=== PATIENT | male | born 1955 ===

== ENCOUNTER 2017-10-24 06:58 | Inpatient (IN) | payer BC ==
[2017-10-21 19:19] VITALS: BMI 27.3
[2017-10-24] MEDS ORDERED: ceFAZolin SODIUM 1 GM VIAL ONE (09:15)
[2017-10-24] MEDS ORDERED: ceFAZolin SODIUM 1 GM VIAL IVPB ONE ×2 (09:26→16:00)
[2017-10-24] MEDS ORDERED: KETAMINE HCL 200 MG/20 ML VIAL ONE (09:51)
[2017-10-24] MEDS ORDERED: PROPOFOL 20 ML ONE (10:14)
[2017-10-24] MEDS ORDERED: GELATIN, ABSORBABLE 100 EACH SPONGE TP ONE (10:15)
[2017-10-24] MEDS ORDERED: THROMBIN (BOVINE) 5,000 UNIT VIAL TP ONE (10:15)
[2017-10-24] MEDS ORDERED: ONDANSETRON 4 MG/2 ML VIAL ONE (11:06)
[2017-10-24] MEDS ORDERED: ONDANSETRON 4 MG/2 ML VIAL IVPUSH PRN ×2 (11:18→11:55)
[2017-10-24] MEDS ORDERED: LACTATED RINGERS SOLUTION 1,000 ML IV SCH (11:30)
--- NOTE | 2017-10-24 11:50 | PN ---
Progress Note (short form) - Note Progress Note: 62M s/p C5-C6 ACDF #0. -Pain control: oral only; no NSAID's. -DVT PPx: - Mechanical only: MEHDI's, SCD's. -Incentive spirometry q15min. -PT/OT/Rehab, OOB. -WBAT B/L LE. -q4h B/L UE & LE NV checks. -Post-op antibiotics x 2 doses. -Clear liquid diet; advance as tolerated. -f/u AM labs. -d/c Langley catheter at midnight. -Care per medical hospitalist team. -Discharge planning: f/u 7-10 days after discharge at [facility] office; call for appointment; . -Will follow. Victor Hugo Castelan MD (Orthopaedic Surgery).
[2017-10-24] MEDS ORDERED: diazePAM 5 MG TABLET PO PRN (11:51)
[2017-10-24] MEDS ORDERED: FUROSEMIDE 40 MG TABLET (FP) PO PRN (11:51)
--- NOTE | 2017-10-24 11:52 | OP ---
Operative Note - Note: Operative Date: 10/24/17 Pre-Operative Diagnosis: Cervical spinal stenosis Operation: C5-C6 ACDF Post-Operative Diagnosis: Same as Pre-op Surgeon: Victor Hugo Castelan Racker Octave Board: Sony Castelan Anesthesiologist/CITY ENGINEER: Stephanie Zimmerman Anesthesia: General Estimated Blood Loss (mls): 50 Fluid Volume Replaced (mls): 1,000 Operative Report Dictated: Yes
[2017-10-24] MEDS ORDERED: oxyCODONE HCL 5 MG TABLET PO PRN ×2 (11:55)
[2017-10-24] MEDS ORDERED: DEXAMETHASONE SOD PHOSPHATE 4 MG/1 ML VIAL ONE (13:02)
[2017-10-24] MEDS: oxyCODONE HCL 5 MG TABLET PO PRN ×2 (13:09→19:33)
[2017-10-24] MEDS: LACTATED RINGERS SOLUTION 1,000 ML IV SCH (13:35)
--- NOTE | 2017-10-24 13:59 | OP ---
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 OPERATION PERFORMED: 1. Anterior cervical diskectomy C5-C6. 2. Partial corpectomy C5, partial corpectomy 6. 3. Insertion of cage C5-C6. 4. Bone grafting. 5. Plating anterior arthrodesis C5-C6. ANESTHESIA: General. ANTIBIOTICS GIVEN: Preoperative 2 g Keflex, 1 g vancomycin and 1 g Kefzol given at the end of the procedure, 10 mg of Decadron given. Neural monitoring was utilized. DESCRIPTION OF PROCEDURE: The patient was correctly identified and brought to the operating room. Placed supine on the operating room table. Anesthesia provided. Baseline neural monitoring numbers read. Patient placed in the extended position. Repeat neural monitoring revealed no change. Skin cleansing was repeated with scrub solution, wiped off with alcohol, DuraPrep applied. Incision was made at the lines of Fer at the level of the cricothyroid interval. Dissection was taken through the platysma muscle. This was split longitudinally. The plane lateral to the strap muscles was entered. A Army-Barrera retractor with a lipped blade was placed under the esophagus retracting the visceral structures to the left, and a handheld was placed retracting the carotid sheath to the right. Using a unipolar Bovie, the longus coli was lifted off the bone bed of C5-C6 to expose the entire disk from left to right accordingly. Verification of the level with 1 single lateral shoot-through x- ray with a needle placed into the actual disk space. This was appropriately confirmed. The disk at C5-C6 was resected using curettes, pituitary rongeurs, and a 14-mm kristin-tip Midas Terence bur was utilized to open up the rectangle completely exposing the entire rectangular space. Approximately 2 Altha pins were placed, one in C5, one in C6. Slight gentle distraction achieved. Once the distraction had been achieved, the remaining bone of the partial corpectomy of C5 and C6 was then completed freeing the entire thecal. All of the posterior longitudinal ligament elements taken out. Then we were looking straight at the bulking dura with complete decompression. A size 8 Fortilink spacer with demineralized bone matrix button was placed within the confines of the spacer. Inserted the destructor device. It was removed. The cage was solidly seated. Verified on lateral fluoroscopic x-rays to be in excellent position. The plate was then inserted. This was a size 16-mm plate. Four screws utilized. These were 12-mm screws. Into each hold solid fixation achieved. Locking device applied. No complications. The wounds were thoroughly lavage. Hemostasis completed achieved. Superficial fascia 2-0 Vicryl skin, subcutaneous 2-0 Vicryl skin, 3-0 Monocryl with Steri-Strips. No complications. It must be noted that this operation was performed under a lighted microscope. MD ELIANA Santamaria/[id number] MTDD
[2017-10-24] MEDS ORDERED: ACETAMINOPHEN 325 MG TABLET (FP) PO SCH (14:15)
[2017-10-24] MEDS ORDERED: DEXAMETHASONE SOD PHOSPHATE 10 MG/1 ML VIAL IVPUSH ONE (14:15)
[2017-10-24] MEDS ORDERED: CEFAZOLIN 1 GM in DEXTROSE 5%-WATER - 50 ML IVPB SCH (16:00)
[2017-10-24] MEDS ORDERED: ACETAMINOPHEN 325 MG TABLET (FP) PO PRN (19:15)
--- NOTE | 2017-10-24 20:12 | CONSULT ---
Consultation: REQUESTING PROVIDER: CONSULT REQUEST: We have been asked to medically evaluate this patient for ( POD #0 C5-C6 ACDF). HISTORY OF PRESENT ILLNESS: Pt is a 62 y/o gentleman with a pmh of HTN, DM2, Takotsubo's cardiomyopathy, aortic stenosis, and hypercholesterolemia. Pt as outpatient underwent MR scanning of his cervical spine. Found to have disk prolapses at C3-C4, C5-C6 with impingement and narrowing of the canal in addition to diffuse fusiform stenosis in the midcervical region. Pt is POD # 0. Allergies: Fentanyl, hydrocodone, levofloxacin, methadone, morphine, tramadol, cefepime, clindamycin, fenofibrate, sulfamethoxazole, trimethoprim, sufentanyl. PShx- [id number], pt underwent numerous spinal surgeries, cannot recall exact surgeries. 2016-- underwent b/l hip replacement surgery. REVIEW OF SYSTEMS: CONSTITUTIONAL: PRESENT: generalized weakness, malaise, HEENT: Absent: rhinorrhea, nasal congestion, throat pain, throat swelling, difficulty swallowing, mouth swelling, ear pain, eye pain, visual changes CARDIOVASCULAR: Absent: chest pain, syncope, palpitations, irregular heart rate, lightheadedness , peripheral edema RESPIRATORY: PRESENT: shortness of breath GASTROINTESTINAL: Absent: abdominal pain, abdominal distension, nausea, vomiting, diarrhea, constipation, melena, hematochezia GENITOURINARY: Absent: dysuria, frequency, urgency, hesitancy, hematuria, flank pain, genital pain MUSCULOSKELETAL: Absent: myalgia, arthralgia, joint swelling, back pain, neck pain SKIN: Absent: rash, itching, pallor HEMATOLOGIC/IMMUNOLOGIC: Absent: easy bleeding, easy bruising, lymphadenopathy, frequent infections ENDOCRINE: Absent: unexplained weight gain, unexplained weight loss, heat intolerance, cold intolerance NEUROLOGIC: PRESENT: headache, focal weakness or paresthesias PSYCHIATRIC: PRESENT: anxiety PHYSICAL EXAMINATION Vital Signs - 24 hr 10/24/17 10/24/17 10/24/17 07:45 11:49 12:05 Temperature 98.0 F 98.2 F Pulse Rate 75 85 81 Respiratory 16 16 18 Rate Blood Pressure 103/66 135/86 131/71 O2 Sat by Pulse 99 97 100 Oximetry (%) 10/24/17 10/24/17 10/24/17 12:20 12:35 12:50 Temperature Pulse Rate 78 76 77 Respiratory 18 18 18 Rate Blood Pressure 139/75 138/77 149/76 O2 Sat by Pulse 100 100 100 Oximetry (%) 10/24/17 10/24/17 10/24/17 13:05 13:20 13:35 Temperature Pulse Rate 76 78 76 Respiratory 18 18 18 Rate Blood Pressure 117/73 147/82 140/75 O2 Sat by Pulse 100 100 100 Oximetry (%) 10/24/17 10/24/17 10/24/17 13:50 14:05 14:20 Temperature Pulse Rate 76 79 78 Respiratory 18 18 18 Rate Blood Pressure 143/75 146/82 154/80 O2 Sat by Pulse 100 100 100 Oximetry (%) 10/24/17 10/24/17 10/24/17 14:25 14:40 14:55 Temperature Pulse Rate 78 79 77 Respiratory 18 18 18 Rate Blood Pressure 151/83 152/79 146/82 O2 Sat by Pulse 100 100 100 Oximetry (%) 10/24/17 10/24/17 10/24/17 15:10 15:25 15:40 Temperature Pulse Rate 78 82 82 Respiratory 18 18 18 Rate Blood Pressure 142/80 139/81 139/81 O2 Sat by Pulse 100 100 99 Oximetry (%) 10/24/17 10/24/17 10/24/17 15:55 16:10 16:25 Temperature Pulse Rate 83 82 83 Respiratory 18 18 18 Rate Blood Pressure 149/82 145/77 143/80 O2 Sat by Pulse 100 100 100 Oximetry (%) 10/24/17 10/24/17 10/24/17 16:40 16:55 17:10 Temperature Pulse Rate 78 79 79 Respiratory 18 18 18 Rate Blood Pressure 141/81 147/83 146/82 O2 Sat by Pulse 100 100 100 Oximetry (%) 10/24/17 10/24/17 10/24/17 17:25 17:40 17:55 Temperature 97.8 F 97.8 F Pulse Rate 78 83 78 Respiratory 18 18 18 Rate Blood Pressure 146/78 132/72 147/72 O2 Sat by Pulse 100 100 100 Oximetry (%) 10/24/17 10/24/17 18:00 18:30 Temperature 98.3 F Pulse Rate 82 75 Respiratory 15 13 Rate Blood Pressure 151/86 144/77 O2 Sat by Pulse 100 Oximetry (%) GENERAL: Awake, NAD HEAD: NC/AT EYES: EOMI. EARS, NOSE, THROAT: MMM NECK: Bandage anterior neck site of surgery. LUNGS: Dec at bases. HEART: RRR ABDOMEN: NT, ND, No HSM MUSCULOSKELETAL: Strength 5/5 throughout UPPER EXTREMITIES: No CCE LOWER EXTREMITIES: No CCE NEUROLOGICAL: No Neuro Deficits PSYCHIATRIC: Cooperative. Good eye contact. Appropriate mood and affect. SKIN: No Rashes or Lesions observed Laboratory Results - last 24 hr 10/24/17 10/24/17 10/24/17 07:13 07:20 07:47 POC Glucometer 148 Blood Type O POSITIVE O POSITIVE Antibody Screen Negative Active Medications Generic Name Dose Route Start Last Admin Trade Name Freq PRN Reason Stop Dose Admin Acetaminophen 650 mg 10/24/17 19:15 Tylenol - PO Q6H PRN PAIN 1-6 Diazepam 10 mg 10/24/17 22:00 Valium - PO BID CUBA Diazepam 10 mg 10/24/17 11:51 Valium - PO BID PRN ANXIETY Enalapril Maleate 10 mg 10/25/17 10:00 Vasotec - PO DAILY [facility] Fluticasone Propionate 2 spray 10/25/17 10:00 Flonase - NS DAILY [facility] Furosemide 40 mg 10/24/17 11:51 Lasix - PO DAILY PRN EDEMA Gabapentin 300 mg 10/24/17 22:00 Neurontin - PO BID [facility] Lactated Ringer's 1,000 mls @ 100 mls/hr 10/24/17 12:00 10/24/17 13:35 Lactated Ringers Solution IV 0 mls ASDIR CUBA Administration Cefazolin Sodium 1 gm/ 50 mls @ 100 mls/hr 10/25/17 00:00 Dextrose IVPB 10/25/17 08:29 Q8H [facility] Levothyroxine Sodium 25 mcg 10/25/17 07:00 Synthroid - PO DAILY@0700 [facility] Metoprolol Succinate 50 mg 10/24/17 22:00 Toprol Xl - PO BID [facility] Non-Formulary Medication 25 mg 10/24/17 22:00 Naloxegol Oxalate [Movantik] PO BID [facility] Ondansetron HCl 4 mg 10/24/17 11:18 Zofran Injection IVPUSH Q6H PRN NAUSEA AND/OR VOMITING Ondansetron HCl 4 mg 10/24/17 11:55 Zofran Injection IVPUSH Q6H PRN NAUSEA AND/OR VOMITING Oxycodone HCl 5 mg 10/24/17 11:22 10/24/17 13:09 Roxicodone - PO 5 mg Q3H PRN Administration PAIN LEVEL 1-5 Oxycodone HCl 10 mg 10/24/17 11:22 10/24/17 19:33 Roxicodone - PO 10 mg Q3H PRN Administration PAIN LEVEL 6-10 Oxycodone HCl 10 mg 10/24/17 22:00 Oxycontin - PO 10/27/17 11:22 BID CUAB Oxycodone HCl 5 mg 10/24/17 11:55 Roxicodone - PO Q4H PRN PAIN LEVEL 4 - 6 Oxycodone HCl 10 mg 10/24/17 11:55 Roxicodone - PO Q4H PRN PAIN LEVEL 7 - 10 Pantoprazole Sodium 40 mg 10/24/17 22:00 Protonix - PO BID [facility] Polyethylene Glycol 17 gm 10/25/17 10:00 Miralax (For Daily Use) - PO DAILY [facility] Tamsulosin HCl 0.4 mg 10/24/17 22:00 Flomax - PO BID [facility] Zolpidem Tartrate 10 mg 10/24/17 22:00 Ambien - PO HS PRN INSOMNIA ASSESSMENT/PLAN: 62M s/p C5-C6 anterior Cervical Discectomy POD #6 Saw patient this evening with [facility]. Advised to give up to 20 mg Oxycodone if pt's pain persists. -Pain Management---> Oxycodone 5 mg po q3h PRN pain 1-5, 10 mg po Q3H PRN pain 6 -10, 10 mg po bid cuba, 5 mg po q4h prn pain 4-6, 10 mg po q4h prn pain 7-10. -PT/OT/Rehab, OOB. -WBAT B/L LE. -q4h B/L UE & LE NV checks. -Post-op antibiotics x 2 doses. -Clear liquid diet; advance as tolerated. -f/u AM labs. -d/c Langley catheter at midnight. -Care per medical hospitalist team. -Discharge planning: f/u 7-10 days after discharge at [facility] [place] office; call for appointment; . -Will follow. -Incentive spirometry q15min. FEN LR's 1,000 mls @ 100 mls/hr Monitor electrolytes Diabetic diet DVT PPx: MEHDI's Dispo: We will continue to follow the patient. Thank you for this consultative opportunity. Visit type - Emergency Visit Emergency Visit: No - New Patient This patient is new to me today: Yes Date on this admission: 10/24/17 - Critical Care Critical Care patient: Yes Total Critical Care Time (in minutes): 35 Critical Care Statement: The care of this patient involved high complexity decision making to prevent further life threatening deterioration of the patient 's condition and/or to evaluate & treat vital organ system(s) failure or risk of failure.
[2017-10-24] MEDS ORDERED: oxyCODONE HCL 5 MG TABLET PO ONE (21:11)
[2017-10-24] MEDS: diazePAM 5 MG TABLET PO SCH (21:24)
[2017-10-24] MEDS: oxyCODONE HCL 10 MG SUSTAINED ACTING TABLET PO SCH (21:24)
[2017-10-24] MEDS: PANTOPRAZOLE 40 MG TABLET (FP) PO SCH (21:25)
[2017-10-24] MEDS: GABAPENTIN 300 MG CAPSULE (FP) PO SCH (21:25)
[2017-10-24] MEDS: TAMSULOSIN HCL 0.4 MG CAP.ER.24H (FP) PO SCH (21:25)
--- NOTE | 2017-10-24 21:51 | PN ---
Physical Exam: SUBJECTIVE: Patient seen and examined in the ICU. POD 0 C5-C6 ACDF. Pt complaining of pain and neck stiffness. 11/14. Pt complaining of arm weakness though moving his arms well during interview. States he has not yet passed flatus and that his pain is not currently controlled. 50 cc blood loss 1L LR intraoperatively No reported complications OBJECTIVE: Vital Signs Period Temp Pulse Resp BP Sys/Ochoa Pulse Ox Last 24 Hr 97.8 F-98.3 F 74-85 13-20 103-154/66-86 97-100 GENERAL: A&O, no acute distress HEAD: Normocephalic, atraumatic. EYES: PERRL, EOMI, no scleral icterus EARS, NOSE, THROAT: oropharynx clear without exudates. Moist mucous membranes. NECK: supple without lymphadenopathy, decreased ROM, stiffness, clean dry dressing on anterior neck. LUNGS: CTA b/l, no crackles or wheezes HEART: Regular rate and rhythm, normal S1 and S2 without murmur, rub or gallop. ABDOMEN: Soft, nontender to palpation, hypoactive bowel sounds : Manley in place draining light yellow urine MUSCULOSKELETAL: No bony deformities or tenderness. No CVA tenderness. UPPER EXTREMITIES: 2+ pulses, warm, well-perfused. No cyanosis. No clubbing. No peripheral edema. LOWER EXTREMITIES: Decreased sensation b/l, peripheral neuropathy secondary to DM, says unchanged post-op 2+ pulses, warm, well-perfused. No calf tenderness. No peripheral edema. NEUROLOGICAL: Cranial nerves II-XII grossly intact. Normal speech. SKIN: Warm, dry, normal turgor, no rashes or lesions noted Laboratory Results - last 24 hr 10/24/17 10/24/17 10/24/17 07:13 07:20 07:47 POC Glucometer 148 Blood Type O POSITIVE O POSITIVE Antibody Screen Negative Active Medications Generic Name Dose Route Start Last Admin Trade Name Freq PRN Reason Stop Dose Admin Acetaminophen 650 mg 10/24/17 19:15 Tylenol - PO Q6H PRN PAIN 1-6 Diazepam 10 mg 10/24/17 22:00 10/24/17 21:24 Valium - PO 10 mg BID [facility] Administration Diazepam 10 mg 10/24/17 11:51 Valium - PO BID PRN ANXIETY Enalapril Maleate 10 mg 10/25/17 10:00 Vasotec - PO DAILY [facility] Fluticasone Propionate 2 spray 10/25/17 10:00 Flonase - NS DAILY [facility] Furosemide 40 mg 10/24/17 11:51 Lasix - PO DAILY PRN EDEMA Gabapentin 300 mg 10/24/17 22:00 10/24/17 21:25 Neurontin - PO 300 mg BID [facility] Administration Lactated Ringer's 1,000 mls @ 100 mls/hr 10/24/17 12:00 10/24/17 13:35 Lactated Ringers Solution IV 0 mls ASDIR [facility] Administration Cefazolin Sodium 1 gm/ 50 mls @ 100 mls/hr 10/25/17 00:00 Dextrose IVPB 10/25/17 08:29 Q8H [facility] Levothyroxine Sodium 25 mcg 10/25/17 07:00 Synthroid - PO DAILY@0700 [facility] Metoprolol Succinate 50 mg 10/24/17 22:00 10/24/17 21:24 Toprol Xl - PO 50 mg BID [facility] Administration Non-Formulary Medication 25 mg 10/24/17 22:00 Naloxegol Oxalate [Movantik] PO BID [facility] Ondansetron HCl 4 mg 10/24/17 11:18 Zofran Injection IVPUSH Q6H PRN NAUSEA AND/OR VOMITING Ondansetron HCl 4 mg 10/24/17 11:55 Zofran Injection IVPUSH Q6H PRN NAUSEA AND/OR VOMITING Oxycodone HCl 5 mg 10/24/17 11:22 10/24/17 13:09 Roxicodone - PO 5 mg Q3H PRN Administration PAIN LEVEL 1-5 Oxycodone HCl 10 mg 10/24/17 11:22 10/24/17 19:33 Roxicodone - PO 10 mg Q3H PRN Administration PAIN LEVEL 6-10 Oxycodone HCl 10 mg 10/24/17 22:00 10/24/17 21:24 Oxycontin - PO 10/27/17 11:22 10 mg BID [facility] Administration Oxycodone HCl 5 mg 10/24/17 11:55 Roxicodone - PO Q4H PRN PAIN LEVEL 4 - 6 Oxycodone HCl 10 mg 10/24/17 11:55 Roxicodone - PO Q4H PRN PAIN LEVEL 7 - 10 Oxycodone HCl 20 mg 10/25/17 04:00 Roxicodone - PO 10/25/17 04:01 ONCE ONE Pantoprazole Sodium 40 mg 10/24/17 22:00 10/24/17 21:25 Protonix - PO 40 mg BID [facility] Administration Polyethylene Glycol 17 gm 10/25/17 10:00 Miralax (For Daily Use) - PO DAILY [facility] Tamsulosin HCl 0.4 mg 10/24/17 22:00 10/24/17 21:25 Flomax - PO 0.4 mg BID [facility] Administration Zolpidem Tartrate 10 mg 10/24/17 22:00 Ambien - PO HS PRN INSOMNIA ASSESSMENT/PLAN: 62 yo male in the ICU s/p C5-C6 ACDF POD 0 Post-op Management -Pain control PO only Oxycodone 10 mg PO BID [facility] Oxycodone 10 mg PO Q4 PRN Oxycodone 20 mg PO once as per ortho Can receive another additional oxycodone 20 mg PO in 6 or 7 hours -Valium 10 mg PO BID for muscle spasms -D/c manley @ midnight -clear liquid diet advance as tolerated -Neuro checks Q4 -OOB as tolerated, PT eval -To med/surg or home tomorrow as per ortho Hypothyroidism -Synthroid 25 mcg PO Daily HTN/HLD -Enalapril 10 mg PO Daily -Toprol 50 mg PO BID DVT Prophylaxis -Mechanical only, SCDs -no heparin FEN -Fluids: LR @ 100 cc/hr -Electrolytes: BMP in AM -Nutrition: Clear liquids, advance as tolerated Disposition ICU overnight, can go to floors or home tomorrow as per ortho Visit type - Emergency Visit Emergency Visit: Yes Care time: The patient presented to the Emergency Department on the above date and was hospitalized for further evaluation of their emergent condition. - New Patient This patient is new to me today: Yes Date on this admission: 10/24/17 - Critical Care Critical Care patient: Yes Total Critical Care Time (in minutes): 35 Critical Care Statement: The care of this patient involved high complexity decision making to prevent further life threatening deterioration of the patient 's condition and/or to evaluate & treat vital organ system(s) failure or risk of failure.
[2017-10-24] MEDS ORDERED: ZOLPIDEM TARTRATE 5 MG TABLET PO PRN (22:00)
[2017-10-24] MEDS ORDERED: PATIENT'S OWN MEDICATION (NON-FORMULARY) (Naloxegol Oxalate [Movantik] 25 MG) PO SCH ×2 (22:00)
--- NOTE | 2017-10-24 22:08 | PN ---
Teaching Attending Note Name of Resident: Matt Rios ATTENDING PHYSICIAN STATEMENT I saw and evaluated the patient. I reviewed the resident's note and discussed the case with the resident. I agree with the resident's findings and plan as documented. SUBJECTIVE: Patient is s/p C5-C6 anterior cervical discectomy and fusion today. He complains of neck pain. OBJECTIVE: Vital Signs Period Temp Pulse Resp BP Sys/Ochoa Pulse Ox Last 24 Hr 97.3 F-98.3 F 72-85 13-20 103-154/66-94 97-100 HEART: S1S2, RRR LUNGS: Clear ABDOMEN: Soft, non-tender, non-distended, normal BS EXTREMITIES: No edema Laboratory Results - last 24 hr 10/24/17 10/24/17 10/24/17 07:13 07:20 07:47 POC Glucometer 148 Blood Type O POSITIVE O POSITIVE Antibody Screen Negative Current Medications Generic Name Dose Route Start Last Admin Trade Name Freq PRN Reason Stop Dose Admin Acetaminophen 650 mg 10/24/17 19:15 Tylenol - PO Q6H PRN PAIN 1-6 Diazepam 10 mg 10/24/17 22:00 10/24/17 21:24 Valium - PO 10 mg BID CHELSEY Administration Diazepam 10 mg 10/24/17 11:51 Valium - PO BID PRN ANXIETY Enalapril Maleate 10 mg 10/25/17 10:00 Vasotec - PO DAILY [facility] Fluticasone Propionate 2 spray 10/25/17 10:00 Flonase - NS DAILY [facility] Furosemide 40 mg 10/24/17 11:51 Lasix - PO DAILY PRN EDEMA Gabapentin 300 mg 10/24/17 22:00 10/24/17 21:25 Neurontin - PO 300 mg BID [facility] Administration Lactated Ringer's 1,000 mls @ 100 mls/hr 10/24/17 12:00 10/24/17 13:35 Lactated Ringers Solution IV 0 mls ASDIR [facility] Administration Cefazolin Sodium 1 gm/ 50 mls @ 100 mls/hr 10/25/17 00:00 Dextrose IVPB 10/25/17 08:29 Q8H [facility] Levothyroxine Sodium 25 mcg 10/25/17 07:00 Synthroid - PO DAILY@0700 [facility] Metoprolol Succinate 50 mg 10/24/17 22:00 10/24/17 21:24 Toprol Xl - PO 50 mg BID [facility] Administration Non-Formulary Medication 25 mg 10/24/17 22:00 Naloxegol Oxalate [Movantik] PO BID [facility] Ondansetron HCl 4 mg 10/24/17 11:18 Zofran Injection IVPUSH Q6H PRN NAUSEA AND/OR VOMITING Ondansetron HCl 4 mg 10/24/17 11:55 Zofran Injection IVPUSH Q6H PRN NAUSEA AND/OR VOMITING Oxycodone HCl 5 mg 10/24/17 11:22 10/24/17 13:09 Roxicodone - PO 5 mg Q3H PRN Administration PAIN LEVEL 1-5 Oxycodone HCl 10 mg 10/24/17 11:22 10/24/17 19:33 Roxicodone - PO 10 mg Q3H PRN Administration PAIN LEVEL 6-10 Oxycodone HCl 10 mg 10/24/17 22:00 10/24/17 21:24 Oxycontin - PO 10/27/17 11:22 10 mg BID [facility] Administration Oxycodone HCl 5 mg 10/24/17 11:55 Roxicodone - PO Q4H PRN PAIN LEVEL 4 - 6 Oxycodone HCl 10 mg 10/24/17 11:55 Roxicodone - PO Q4H PRN PAIN LEVEL 7 - 10 Oxycodone HCl 20 mg 10/25/17 04:00 Roxicodone - PO 10/25/17 04:01 ONCE ONE Pantoprazole Sodium 40 mg 10/24/17 22:00 10/24/17 21:25 Protonix - PO 40 mg BID [facility] Administration Polyethylene Glycol 17 gm 10/25/17 10:00 Miralax (For Daily Use) - PO DAILY [facility] Tamsulosin HCl 0.4 mg 10/24/17 22:00 10/24/17 21:25 Flomax - PO 0.4 mg BID [facility] Administration Zolpidem Tartrate 10 mg 10/24/17 22:00 Ambien - PO HS PRN INSOMNIA ASSESSMENT AND PLAN: This is a 62 year old man with a history of cervical stenosis, HTN, hyperlipidemia, hypothyroidism, type 2 DM, peripheral neuropathy who presented today for C5-C6 anterior cervical discectomy and fusion. 1. Cervical spinal stenosis - s/p C5-C6 anterior cervical discectomy and fusion today - Pain control - Continue Neurontin - Physical therapy 2. HTN - Continue Toprol XL, Vasotec, lasix 3. Hyperlipidemia - Continue Lipitor 4. Hypothyroidism - Continue Synthroid 5. Type 2 DM with peripheral neuropathy - Metformin, glyburide held - Fingersticks with Novolog sliding scale - Continue Neurontin for neuropathy
[2017-10-25] MEDS: ACETAMINOPHEN 325 MG TABLET (FP) PO SCH ×2 (03:12→03:13)
[2017-10-25] MEDS ORDERED: oxyCODONE HCL 5 MG TABLET PO ONE ×2 (04:00→14:45)
[2017-10-25 06:28] LABS: HEMOGLOBIN 12.3 GM/dL (11.7-16.9); MCH 28.2 pg (25.7-33.7); MCHC 33.2 g/dl (32.0-35.9); MEAN CELL VOLUME 84.8 fl (80-96); PLATELET COUNT 146 K/MM3 (134-434); RBC 4.36 M/mm3 (4.00-5.60); RDW 15.1 % (11.9-15.9); WHITE BLOOD COUNT 8.1 K/mm3 (4.0-10.0)
[2017-10-25 06:48] LABS: ANION GAP 7 (8-16); BLOOD UREA NITROGEN 18 mg/dL (7-18); CALCIUM 8.9 mg/dL (8.5-10.1); CHLORIDE 101 mmol/L (98-107); CO2 32 mmol/L (21-32); GLUCOSE,RANDOM 119 mg/dL (74-106); MAGNESIUM 1.8 mg/dL (1.8-2.4); POTASSIUM 4.3 mmol/L (3.5-5.1); SODIUM 140 mmol/L (136-145)
[2017-10-25] MEDS: oxyCODONE HCL 5 MG TABLET PO PRN ×4 (06:48→23:01)
[2017-10-25 06:51] LABS: ALK PHOS 111 U/L (45-117); BILIRUBIN,TOTAL 0.4 mg/dL (0.2-1.0); CREATININE 0.6 mg/dL (0.7-1.3); PHOSPHOROUS 3.7 mg/dL (2.5-4.9); SGOT/AST 46 U/L (15-37); SGPT/ALT 33 U/L (12-78); TOT PROT 7.2 g/dl (6.4-8.2)
[2017-10-25] MEDS ORDERED: LEVOTHYROXINE NA 25 MCG TABLET (FP) PO SCH (07:00)
[2017-10-25] MEDS ORDERED: ceFAZolin SODIUM 1 GM VIAL ONE (07:41)
[2017-10-25] MEDS ORDERED: DEXTROSE 5%-WATER - 50 ML IVPB ONE (07:41)
[2017-10-25] MEDS: CEFAZOLIN 1 GM in DEXTROSE 5%-WATER - 50 ML IVPB SCH ×2 (08:30)
[2017-10-25] MEDS: LACTATED RINGERS SOLUTION 1,000 ML IV SCH ×2 (08:37→12:42)
--- NOTE | 2017-10-25 09:29 | PN ---
Progress Note (short form) - Note Progress Note: Anesthesia postop note 62 y/o M, s/p GA for ACDF POD#1, vss, aaox3, not complaining of pain. The patient is only complaining of some transient mental status changes immediately postop. Alert, oriented and conversant today. No anesthesia complications.
[2017-10-25] MEDS ORDERED: PT OWN MED DRAWER 7, Y5N ONE ×2 (09:48→10:07)
[2017-10-25] MEDS: TAMSULOSIN HCL 0.4 MG CAP.ER.24H (FP) PO SCH ×2 (09:53→23:03)
[2017-10-25] MEDS: GABAPENTIN 300 MG CAPSULE (FP) PO SCH ×2 (09:53→23:03)
[2017-10-25] MEDS: oxyCODONE HCL 10 MG SUSTAINED ACTING TABLET PO SCH (09:56)
[2017-10-25] MEDS: PANTOPRAZOLE 40 MG TABLET (FP) PO SCH ×2 (09:56→23:03)
[2017-10-25] MEDS: diazePAM 5 MG TABLET PO SCH ×2 (09:57→23:02)
[2017-10-25] MEDS ORDERED: ENALAPRIL MALEATE 10 MG TABLET (FP) PO SCH (10:00)
[2017-10-25] MEDS ORDERED: FLUTICASONE PROP 0.05% 16 GM NASAL SPRAY NS SCH (10:00)
[2017-10-25] MEDS ORDERED: POLYETHYLENE GLYCOL 3350 119 GM BTL PO SCH (10:00)
--- NOTE | 2017-10-25 11:43 | PN ---
Teaching Attending Note Name of Resident: Arnel Camacho ATTENDING PHYSICIAN STATEMENT I saw and evaluated the patient. I reviewed the resident's note and discussed the case with the resident. I agree with the resident's findings and plan as documented. SUBJECTIVE: Pt seen and examined in the ICU. States pain not controlled. No shortness of breath or chest pain. No flatus or bowel movements. OBJECTIVE: Vital Signs Period Temp Pulse Resp BP Sys/Ochoa Pulse Ox Last 24 Hr 97.3 F-98.3 F 57-85 10-20 111-154/62-94 97-100 Intake & Output 10/22/17 10/23/17 10/24/17 10/25/17 23:59 23:59 23:59 23:59 Intake Total 1250 1200 Output Total 3850 2200 Balance -2600 -1000 Gen: NAD at rest Heart: RRR Lung: decreased breath sounds at the bases Abd: soft, nontender Ext: no edema CBC, BMP 10/25/17 05:30 10/25/17 05:30 Active Medications Acetaminophen (Tylenol -) 650 mg PO Q6H PRN PRN Reason: PAIN 1-6 Diazepam (Valium -) 10 mg PO BID [facility] Last Admin: 10/25/17 09:57 Dose: 10 mg Diazepam (Valium -) 10 mg PO BID PRN PRN Reason: ANXIETY Enalapril Maleate (Vasotec -) 10 mg PO DAILY [facility] Last Admin: 10/25/17 10:08 Dose: 10 mg Fluticasone Propionate (Flonase -) 2 spray NS DAILY [facility] Furosemide (Lasix -) 40 mg PO DAILY PRN PRN Reason: EDEMA Gabapentin (Neurontin -) 300 mg PO BID [facility] Last Admin: 10/25/17 09:53 Dose: Not Given Lactated Ringer's (Lactated Ringers Solution) 1,000 mls @ 100 mls/hr IV ASDIR [facility] Last Admin: 10/25/17 08:37 Dose: 100 mls/hr Levothyroxine Sodium (Synthroid -) 25 mcg PO DAILY@0700 [facility] Last Admin: 10/25/17 06:12 Dose: 25 mcg Metoprolol Succinate (Toprol Xl -) 50 mg PO BID [facility] Last Admin: 10/25/17 10:05 Dose: 50 mg Non-Formulary Medication (Naloxegol Oxalate [Movantik]) 25 mg PO BID [facility] Ondansetron HCl (Zofran Injection) 4 mg IVPUSH Q6H PRN PRN Reason: NAUSEA AND/OR VOMITING Last Admin: 10/25/17 04:23 Dose: 4 mg Ondansetron HCl (Zofran Injection) 4 mg IVPUSH Q6H PRN PRN Reason: NAUSEA AND/OR VOMITING Oxycodone HCl (Roxicodone -) 5 mg PO Q3H PRN PRN Reason: PAIN LEVEL 1-5 Last Admin: 10/25/17 09:57 Dose: 5 mg Oxycodone HCl (Roxicodone -) 10 mg PO Q3H PRN PRN Reason: PAIN LEVEL 6-10 Last Admin: 10/25/17 06:48 Dose: 10 mg Oxycodone HCl (Oxycontin -) 10 mg PO BID [facility] Stop: 10/27/17 11:22 Last Admin: 10/25/17 09:56 Dose: 10 mg Oxycodone HCl (Roxicodone -) 5 mg PO Q4H PRN PRN Reason: PAIN LEVEL 4 - 6 Oxycodone HCl (Roxicodone -) 10 mg PO Q4H PRN PRN Reason: PAIN LEVEL 7 - 10 Pantoprazole Sodium (Protonix -) 40 mg PO BID [facility] Last Admin: 10/25/17 09:56 Dose: 40 mg Polyethylene Glycol (Miralax (For Daily Use) -) 17 gm PO DAILY [facility] Last Admin: 10/25/17 09:53 Dose: 17 gm Tamsulosin HCl (Flomax -) 0.4 mg PO BID [facility] Last Admin: 10/25/17 09:53 Dose: 0.4 mg Zolpidem Tartrate (Ambien -) 10 mg PO HS PRN PRN Reason: INSOMNIA ASSESSMENT AND PLAN: Cervical Spinal Stenosis s/p C5-C6 anterior fusion HTN DM Aortic Stenosis BPH - pain control - incentive spirometry - rehab/PT - bowel regimen - DVT prophylaxis - can monitor on floor
--- NOTE | 2017-10-25 14:26 | PATH ---
Surgical Pathology Report Patient Name: CAESAR WEBSTER [facility]. Rec. #: [id number] /Age/Gender: 1955 (Age: 62) / M Account: [id number] Location: AMBULATORY SURG Taken: 10/24/2017 Received: 10/24/2017 Reported: 10/25/2017 Physicians: Victor Hugo Castelan M.D. Specimen(s) Received C5-C6 DISC Clinical History C5 -C6, cervical stenosis, myelopathy Final Diagnosis DISC, C5-6, ANTERIOR CERVICAL DECOMPRESSION AND FUSION/PARTIAL CORPECTOMY: INTERVERTEBRAL DISC TISSUE. Electronically Signed Lilly Holguin M.D. Gross Description Received in formalin labeled "C5-6 disc," is a 3.3 x 2.3 x 0.3 cm aggregate of aguilar-red fragments of fibrocartilaginous tissue. A insurance claim representative portion is submitted in one cassette. /10/24/2017 saudi/10/24/2017
--- NOTE | 2017-10-25 14:45 | PN ---
Teaching Attending Note Name of Resident: Alice Fernandez ATTENDING PHYSICIAN STATEMENT I saw and evaluated the patient. I reviewed the resident's note and discussed the case with the resident. I agree with the resident's findings and plan as documented. SUBJECTIVE:c/o pain. states no improvement with pain medications. states he takes oxycodone 20mg q4H around the clock with only mild relief. has not seen ornamental painter and this is why he is having surgery. denies Cp, SOB , fever, chills, N/V/C/d. had 2 small BM OBJECTIVE: Last Vital Signs Temp Pulse Resp BP Pulse Ox 98.5 F 63 14 112/59 100 10/25/17 12:00 10/25/17 12:00 10/25/17 12:00 10/25/17 12:00 10/25/17 08:08 General NAD HEENT anterior cervical dressing c/d/i CV S1 s2 RRR no murmur/rub/gallop Lungs CTA B/l no wheezing/rales/rhonchi Abdomen soft NT/ND extremities decreased 3/5 in B/L UE ASSESSMENT AND PLAN: 62yo M with PMH HTN. DM., dyslipidemia and hypothyroid and cervical stenosis 1. Cervical stenosis- s/p C5-C6 anterior cervical discectomy and fusion 10/24. tolerated surgery well. states his pain is not controlled. Istop and was only written to take 10mg Q4H. would get pain management to help with pain control. also on oxycontin 10mg BID standing which should be controlling the pain and preventing the need for medications. pain management eval. having flatus and BM. can advance diet. manley until able to ambulate. further recommendations per ortho. PT eval 2. HTN- controlled. cont home meds 3. hypohtyroid- on lT4 4. DM- hold oral agents. on BGM, ISS 5. DVT ppx- hep sq 6. MICU. stable for transfer to floor istop Reference #: [id number] The care of this patient involved high complexity decision making to prevent further life threatening deterioration of the patient's condition and/or to evaluate & treat vital organ system(s) failure or risk of failure. 40 minutes
[2017-10-25] MEDS: BENZOCAINE/MENTH/CETYLPYRD CL 1 EACH LOZENGE MM PRN ×3 (17:38→23:50)
--- NOTE | 2017-10-25 17:38 | PN ---
Physical Exam: SUBJECTIVE: Patient seen and examined this am and evening in icu. Pt in bed c/o severe pain in his right hand. Pt states that his current medication regimen is inadequate for pain control. Has passed flatus as of this evening. Endorses some sob and dry mouth. OBJECTIVE: Vital Signs Period Temp Pulse Resp BP Sys/Ochoa Pulse Ox Last 24 Hr 97.3 F-98.8 F 57-83 10-20 96-151/51-94 100-100 GENERAL: Awake, AD HEAD: NC/AT EYES: EOMI. EARS, NOSE, THROAT: MMM NECK: Bandage anterior neck site of surgery. LUNGS: Dec at bases. HEART: RRR ABDOMEN: NT, ND, No HSM MUSCULOSKELETAL: Strength 3/5 throughout UPPER EXTREMITIES: No CCE LOWER EXTREMITIES: No CCE, advanced Diabetic neuropathy lower extremities. Venous stasis. NEUROLOGICAL: No Neuro Deficits SKIN: No Rashes or Lesions observed Laboratory Results - last 24 hr 10/25/17 10/25/17 05:30 05:30 WBC 8.1 RBC 4.36 Hgb 12.3 Hct 37.0 MCV 84.8 MCH 28.2 MCHC 33.2 RDW 15.1 Plt Count 146 MPV 8.0 Sodium 140 Potassium 4.3 Chloride 101 Carbon Dioxide 32 Anion Gap 7 L BUN 18 Creatinine 0.6 L Creat Clearance w eGFR > 60 Random Glucose 119 H Calcium 8.9 Phosphorus 3.7 Magnesium 1.8 Total Bilirubin 0.4 AST 46 H ALT 33 Alkaline Phosphatase 111 Total Protein 7.2 Albumin 3.0 L Active Medications Generic Name Dose Route Start Last Admin Trade Name Freq PRN Reason Stop Dose Admin Acetaminophen 650 mg 10/24/17 19:15 Tylenol - PO Q6H PRN PAIN 1-6 Benzocaine/Menthol 1 each 10/25/17 15:09 Cepacol Lozenge - MM PRN PRN SORE THROAT Diazepam 10 mg 10/24/17 22:00 10/25/17 09:57 Valium - PO 10 mg BID [facility] Administration Diazepam 10 mg 10/24/17 11:51 10/25/17 09:57 Valium - PO 10 mg BID PRN Administration ANXIETY Enalapril Maleate 10 mg 10/25/17 10:00 10/25/17 10:08 Vasotec - PO 10 mg DAILY [facility] Administration Fluticasone Propionate 2 spray 10/25/17 10:00 10/25/17 12:41 Flonase - NS Not Given DAILY [facility] Furosemide 40 mg 10/24/17 11:51 Lasix - PO DAILY PRN EDEMA Gabapentin 300 mg 10/24/17 22:00 10/25/17 09:53 Neurontin - PO Not Given BID [facility] Lactated Ringer's 1,000 mls @ 100 mls/hr 10/24/17 12:00 10/25/17 12:42 Lactated Ringers Solution IV Not Given ASDIR [facility] Levothyroxine Sodium 25 mcg 10/25/17 07:00 10/25/17 06:12 Synthroid - PO 25 mcg DAILY@0700 [facility] Administration Metoprolol Succinate 50 mg 10/24/17 22:00 10/25/17 10:05 Toprol Xl - PO 50 mg BID [facility] Administration Non-Formulary Medication 25 mg 10/24/17 22:00 Naloxegol Oxalate [Movantik] PO BID [facility] Ondansetron HCl 4 mg 10/24/17 11:18 10/25/17 04:23 Zofran Injection IVPUSH 4 mg Q6H PRN Administration NAUSEA AND/OR VOMITING Ondansetron HCl 4 mg 10/24/17 11:55 Zofran Injection IVPUSH Q6H PRN NAUSEA AND/OR VOMITING Oxycodone HCl 10 mg 10/25/17 16:35 Roxicodone - PO Q4H PRN PAIN LEVEL 7-10 Pantoprazole Sodium 40 mg 10/24/17 22:00 10/25/17 09:56 Protonix - PO 40 mg BID [facility] Administration Polyethylene Glycol 17 gm 10/25/17 10:00 10/25/17 09:53 Miralax (For Daily Use) - PO 17 gm DAILY [facility] Administration Tamsulosin HCl 0.4 mg 10/24/17 22:00 10/25/17 09:53 Flomax - PO 0.4 mg BID [facility] Administration Zolpidem Tartrate 10 mg 10/24/17 22:00 Ambien - PO HS PRN INSOMNIA ASSESSMENT/PLAN: Pt is a 62 y/o gentleman with a pmh of HTN, DM2, Takotsubo's cardiomyopathy, aortic stenosis, and hypercholesterolemia. Pt as outpatient underwent MR scanning of his cervical spine. Found to have disk prolapses at C3-C4, C5-C6 with impingement and narrowing of the canal in addition to diffuse fusiform stenosis in the midcervical region. Pt is POD # 1. Cervical spinal stenosis - s/p C5-C6 anterior cervical discectomy and fusion POD #1 - Oxycodone 5 mg po q3h PRN pain 1-5, 10 mg po Q3H PRN pain 6-10, 10 mg po bid [place], 5 mg po q4h prn pain 4-6, 10 mg po q4h prn pain 7-10. - Neurontin 300 mg PO BID - -PT/OT/Rehab, OOB. HTN - Metoprolol Succinate, Enalapril, Lasix Hyperlipidemia - Lipitor Hypothyroidism - Synthroid 25 mcg PO Daily Type 2 DM with peripheral neuropathy - Metformin - Glyburide - Fingersticks with Novolog sliding scale - Gabapentin 300 mg PO BID FEN LR's 1,000 mls @ 100 mls/hr Monitor electrolytes Diabetic diet DVT PPx: MEHDI's Dispo: Transfer to Med-Surg Visit type - Emergency Visit Emergency Visit: No - New Patient This patient is new to me today: No - Critical Care Critical Care patient: Yes Total Critical Care Time (in minutes): 35 Critical Care Statement: The care of this patient involved high complexity decision making to prevent further life threatening deterioration of the patient 's condition and/or to evaluate & treat vital organ system(s) failure or risk of failure.
--- NOTE | 2017-10-25 17:39 | PN ---
Progress Note (short form) - Note Progress Note: 62M doing well s/p C5-C6 ACDF POD #1. Pt. has high tolerance for pain medication; requesting Oxycodone 20mg q4h & Oxycontin 30mg q4h. Pain seems well controlled. Pt. denies headache, dysphagia, chest pain, vomiting, chills or sweats. (+) Shortness of breath (thus on NC), & nausea. (+) Langley catheter removed; (+) Flatus; (-) BM. All labs and vitals reviewed. PE: AAO x 3, NAD, cheerful. Neck: Dressing clean/dry/intact. No neck fullness. Sara-incisional soft tissue bed soft, non-tender. B/L UE & LE Sensorimotor Exam: - Pt. actively demonstrating minimum 3/5 strength in all muscles supplying B/ L shoulders, elbows, wrists, hands, hips, knees, ankles, hindfeet, midfeet & forefeet. - Pt. reports 1/2 sensation in all B/L C5-T1 & L2-S1 dermatomal distributions. A/P: 62M doing well s/p C5-C6 ACDF POD #1. -Pain control: will consult Dr. Anthony for assistance. -f/u trial of void; if failed by 8 hours after removal of Langley catheter, ok to decompress bladder with catheter; do not rely on bladder scanner. -DVT PPx: - Mechanical only: MEHDI's, SCD's. -Incentive spirometry q15 min. -PT/OT/Rehab, OOB. -WBAT B/L UE w/no heavy lifting. -Avoid bending & twisting of cervical spine. -Care per medical hospitalist team. -Discharge planning: f/u 7-10 days after discharge at [facility] office; call for appointment; . -Will follow. Sony Castelan MD (Orthopaedic Surgery).
[2017-10-25] MEDS ORDERED: LACTATED RINGERS SOLUTION 1,000 ML IV SCH (20:05)
[2017-10-25] MEDS ORDERED: ONDANSETRON 4 MG/2 ML VIAL IVPUSH PRN ×2 (20:05)
[2017-10-25] MEDS ORDERED: FUROSEMIDE 40 MG TABLET (FP) PO PRN (20:05)
[2017-10-25] MEDS ORDERED: ACETAMINOPHEN 325 MG TABLET (FP) PO PRN (20:05)
[2017-10-25] MEDS ORDERED: diazePAM 5 MG TABLET PO PRN (20:05)
--- NOTE | 2017-10-25 20:22 | PN ---
Physical Exam: SUBJECTIVE: Patient seen and examined this morning in the ICU POD#1 S/p C5-C6 ACDF. Pt complaining of pain and neck stiffness. Has requested pain medication multiple times over night. Feels nausea. Denies fevers, chills, chest pain, SOB, Vomiting, diarrhea, constipation. OBJECTIVE: Vital Signs Period Temp Pulse Resp BP Sys/Ochoa Pulse Ox Last 24 Hr 97.3 F-98.8 F 57-76 10-20 96-149/51-94 100-100 GENERAL: The patient is awake, alert, and fully oriented, in no acute distress. EYES: PERRL, EOMI THROAT: Oropharynx clear without exudates, moist mucous membranes. NECK: Supple, No JVD, Bandage over anterior neck without surrounding erythema, tenderness or active bleeding. LUNGS: Breath sounds equal, clear to auscultation bilaterally, no wheezes HEART: Regular rate and rhythm, S1, S2 without murmur. ABDOMEN: Soft, nontender, nondistended, normoactive bowel sounds : Langley Catheter in place draining clear yellow urine EXTREMITIES: 2+ pulses, no edema. Decreased sensation beyond ankle up to the midcalf and slightly above wrist, says unchanged post-op, Muscle strength 2/5 in all 4 extremities. SKIN: Warm, dry, no rashes or lesions noted Laboratory Results - last 24 hr 10/25/17 10/25/17 05:30 05:30 WBC 8.1 RBC 4.36 Hgb 12.3 Hct 37.0 MCV 84.8 MCH 28.2 MCHC 33.2 RDW 15.1 Plt Count 146 MPV 8.0 Sodium 140 Potassium 4.3 Chloride 101 Carbon Dioxide 32 Anion Gap 7 L BUN 18 Creatinine 0.6 L Creat Clearance w eGFR > 60 Random Glucose 119 H Calcium 8.9 Phosphorus 3.7 Magnesium 1.8 Total Bilirubin 0.4 AST 46 H ALT 33 Alkaline Phosphatase 111 Total Protein 7.2 Albumin 3.0 L Active Medications Acetaminophen (Tylenol -) 650 mg PO Q6H PRN PRN Reason: PAIN 1-6 Benzocaine/Menthol (Cepacol Lozenge -) 1 each MM PRN PRN PRN Reason: SORE THROAT Last Admin: 10/25/17 17:38 Dose: 1 each Diazepam (Valium -) 10 mg PO BID [facility] Last Admin: 10/25/17 09:57 Dose: 10 mg Diazepam (Valium -) 10 mg PO BID PRN PRN Reason: ANXIETY Last Admin: 10/25/17 09:57 Dose: 10 mg Enalapril Maleate (Vasotec -) 10 mg PO DAILY [facility] Last Admin: 10/25/17 10:08 Dose: 10 mg Fluticasone Propionate (Flonase -) 2 spray NS DAILY [facility] Last Admin: 10/25/17 12:41 Dose: Not Given Furosemide (Lasix -) 40 mg PO DAILY PRN PRN Reason: EDEMA Gabapentin (Neurontin -) 300 mg PO BID [facility] Last Admin: 10/25/17 09:53 Dose: Not Given Lactated Ringer's (Lactated Ringers Solution) 1,000 mls @ 100 mls/hr IV ASDIR [facility] Last Admin: 10/25/17 12:42 Dose: Not Given Levothyroxine Sodium (Synthroid -) 25 mcg PO DAILY@0700 [facility] Last Admin: 10/25/17 06:12 Dose: 25 mcg Metoprolol Succinate (Toprol Xl -) 50 mg PO BID [facility] Last Admin: 10/25/17 10:05 Dose: 50 mg Non-Formulary Medication (Naloxegol Oxalate [Movantik]) 25 mg PO BID [facility] Ondansetron HCl (Zofran Injection) 4 mg IVPUSH Q6H PRN PRN Reason: NAUSEA AND/OR VOMITING Last Admin: 10/25/17 04:23 Dose: 4 mg Ondansetron HCl (Zofran Injection) 4 mg IVPUSH Q6H PRN PRN Reason: NAUSEA AND/OR VOMITING Oxycodone HCl (Roxicodone -) 10 mg PO Q4H PRN PRN Reason: PAIN LEVEL 7-10 Last Admin: 10/25/17 17:41 Dose: 10 mg Pantoprazole Sodium (Protonix -) 40 mg PO BID [facility] Last Admin: 10/25/17 09:56 Dose: 40 mg Polyethylene Glycol (Miralax (For Daily Use) -) 17 gm PO DAILY [facility] Last Admin: 10/25/17 09:53 Dose: 17 gm Tamsulosin HCl (Flomax -) 0.4 mg PO BID [facility] Last Admin: 10/25/17 09:53 Dose: 0.4 mg Zolpidem Tartrate (Ambien -) 10 mg PO HS PRN PRN Reason: INSOMNIA ASSESSMENT/PLAN: 62 yo male in the ICU s/p C5-C6 ACDF POD 0 1. C-Spine stenosis s/p C5-C6 anterior cervical discectomy and fusion POD#1 () - Pain controled via Acetaminophen 650 mg PO Q6H PRN and Oxycodone 10 mg PO Q4H PRN - Continues to complain that pain is not well controlled - Will likely need Pain Management Evaluation - Continue Valium 10 mg PO BID [facility] and BID PRN for muscle spasms - Has passed flatus, Diet advanced to Diabetic diet - Langley present draining clear yellow urine, Can D/C once able to ambulate with PT/OT - OOB as tolerated - Will follow Ortho rec's 2. DM - BGM, ISS ACHS 3. Hypothyroidism - Continue Synthroid 25 mcg PO Daily 4. HTN/HLD - Continue Enalapril 10 mg PO Daily - Continue Toprol 50 mg PO BID 5. Prophylaxis - DVT: SCDs 6. FEN - Lactated Ringers @ 100 mls/hr IV - Lytes wnl - Diabetic Diet Dispo: Transfer to med-surg Visit type - Emergency Visit Emergency Visit: No - New Patient This patient is new to me today: Yes Date on this admission: 10/25/17 - Critical Care Critical Care patient: Yes Total Critical Care Time (in minutes): 40 Critical Care Statement: The care of this patient involved high complexity decision making to prevent further life threatening deterioration of the patient 's condition and/or to evaluate & treat vital organ system(s) failure or risk of failure.
[2017-10-25] MEDS ORDERED: PATIENT'S OWN MEDICATION (NON-FORMULARY) (Naloxegol Oxalate [Movantik] 25 MG) PO SCH (22:00)
[2017-10-25] MEDS ORDERED: ZOLPIDEM TARTRATE 5 MG TABLET PO PRN (22:00)
[2017-10-26] MEDS ORDERED: PT OWN MED DRAWER 7, Y5N ONE ×3 (04:33→09:22)
[2017-10-26] MEDS: oxyCODONE HCL 5 MG TABLET PO PRN ×4 (04:36→19:08)
[2017-10-26] MEDS: BENZOCAINE/MENTH/CETYLPYRD CL 1 EACH LOZENGE MM PRN ×4 (04:37→17:41)
[2017-10-26] MEDS ORDERED: LEVOTHYROXINE NA 25 MCG TABLET (FP) PO SCH (07:00)
--- NOTE | 2017-10-26 07:12 | CONSULT ---
Consult Consult Specialty:: pain medicine Referred by:: mary jane Reason for Consultation:: neck pain - History of Present Illness Chief Complaint: neck pain History of Present Illness: Pt is a 62 y/o gentleman with a pmh of HTN, DM2, Takotsubo's cardiomyopathy, aortic stenosis, and hypercholesterolemia. Pt as outpatient underwent MR scanning of his cervical spine. Found to have disk prolapses at C3-C4, C5-C6 with impingement and narrowing of the canal in addition to diffuse fusiform stenosis in the midcervical region. Pt is POD # 1. ISTOP reviewed lyrica user 10mg oxycodone 180 pills per month for the last several months was being prescribed by his pain mgmt doctor Currently he has severe pain in his neck and right shoulder - Alcohol/Substance Use Hx Alcohol Use: No - Smoking History Smoking history: Never smoked Have you smoked in the past 12 months: No Home Medications - Allergies Allergies/Adverse Reactions: Allergies Allergy/AdvReac Type Severity Reaction Status Date / Time fentanyl Allergy Intermediate Verified 10/24/17 07:43 hydrocodone Allergy Intermediate Verified 10/24/17 07:43 levofloxacin [From Levaquin] Allergy Intermediate Verified 10/24/17 07:43 methadone Allergy Intermediate Verified 10/24/17 07:43 morphine Allergy Intermediate Difficulty Verified 10/24/17 07:43 Breathing tramadol Allergy Intermediate Verified 10/24/17 07:43 cefepime AdvReac Intermediate Verified 10/24/17 07:43 clindamycin AdvReac Intermediate Verified 10/24/17 07:43 fenofibrate [From Tricor] AdvReac Intermediate Verified 10/24/17 07:43 sulfamethoxazole AdvReac Verified 10/24/17 07:43 [From Bactrim] trimethoprim [From Bactrim] AdvReac Verified 10/24/17 07:43 sufentanyl Allergy Intermediate Uncoded 10/24/17 07:43 - Home Medications Home Medications: Ambulatory Orders Atorvastatin Ca [Lipitor] 40 mg PO HS 10/21/17 Diazepam [Valium] 10 mg PO BID 10/21/17 Enalapril Maleate [Vasotec -] 10 mg PO DAILY 10/21/17 Fluticasone Propionate [Flonase Allergy Relief] 9.9 ml NS DAILY 10/21/17 Furosemide 40 mg PO DAILY PRN 10/21/17 Glyburide 5 mg PO BID 10/21/17 Iron Ps Complex/B12/Folic Acid [Poly-Iron 150 Forte Capsule] 1 each PO ASDIR Levothyroxine [Synthroid -] 25 mcg PO DAILY 10/21/17 Magnesium Oxide [Magnesium] 400 mg PO DAILY 10/21/17 Metoprolol Succinate [Toprol Xl] 50 mg PO BID 10/21/17 Naloxegol Oxalate [Movantik] 25 mg PO BID 10/21/17 Oxycodone HCl 10 mg PO Q4H PRN 10/21/17 Pantoprazole Sodium [Protonix] 40 mg PO BID 10/21/17 Polyethylene Glycol 3350 [Miralax (For Daily Use) -] 17 gm PO DAILY 10/21/17 Tamsulosin HCl [Flomax] 0.4 mg PO BID 10/21/17 Zolpidem Tartrate [Ambien Cr] 12.5 mg PO HS 10/21/17 Aspirin [Adult Aspirin] 81 mg PO DAILY 10/24/17 Metformin HCl 850 mg PO TID 10/24/17 Physical Exam Vital Signs: Vital Signs Temperature 99.2 F 10/26/17 05:56 Pulse Rate 83 10/26/17 05:44 Respiratory Rate 20 10/26/17 05:44 Blood Pressure 115/61 10/26/17 05:44 O2 Sat by Pulse Oximetry (%) 100 10/25/17 21:00 Musculoskeletal: Yes: Other (neck pain right shoulder pain) Labs: CBC, BMP 10/25/17 05:30 10/25/17 05:30 Assessment/Plan NEck pain and right arm pain Status post ACDF cervical spine 1. Please restart lyrica 200mg PO q8h- outpatient regimen 2. patient was on oxycodone 10mg 6 per day as outpatient. Now with post surgical pain would recommend oxycodone 15mg PO q4h prn pain 3. tylenol prn pain
[2017-10-26 08:35] LABS: HEMATOCRIT 35.7 % (35.4-49); HEMOGLOBIN 12.1 GM/dL (11.7-16.9); MCH 28.8 pg (25.7-33.7); MCHC 33.8 g/dl (32.0-35.9); MEAN CELL VOLUME 85.1 fl (80-96); MEAN PLT VOLUME 7.8 fl (7.5-11.1); PLATELET COUNT 136 K/MM3 (134-434); RDW 15.5 % (11.9-15.9); WHITE BLOOD COUNT 7.7 K/mm3 (4.0-10.0)
[2017-10-26 08:54] LABS: CHLORIDE 101 mmol/L (98-107); SODIUM 140 mmol/L (136-145)
[2017-10-26 09:04] LABS: ALBUMIN 2.8 g/dl (3.4-5.0); ALK PHOS 97 U/L (45-117); ANION GAP 6 MMOL/L (8-16); BILIRUBIN,TOTAL 0.5 mg/dL (0.2-1.0); BLOOD UREA NITROGEN 14 mg/dL (7-18); CALCIUM 8.8 mg/dL (8.5-10.1); CO2 33 mmol/L (21-32); CREATININE 0.6 mg/dL (0.7-1.3); GLUCOSE,RANDOM 130 mg/dL (74-106); MAGNESIUM 1.7 mg/dL (1.8-2.4); PHOSPHOROUS 2.3 mg/dL (2.5-4.9); SGOT/AST 31 U/L (15-37); SGPT/ALT 29 U/L (12-78); TOT PROT 6.8 g/dl (6.4-8.2)
[2017-10-26] MEDS: PANTOPRAZOLE 40 MG TABLET (FP) PO SCH (09:23)
[2017-10-26] MEDS: TAMSULOSIN HCL 0.4 MG CAP.ER.24H (FP) PO SCH (09:24)
[2017-10-26] MEDS: diazePAM 5 MG TABLET PO SCH (09:24)
[2017-10-26] MEDS: GABAPENTIN 300 MG CAPSULE (FP) PO SCH (09:26)
[2017-10-26] MEDS ORDERED: POLYETHYLENE GLYCOL 3350 119 GM BTL PO SCH (10:00)
[2017-10-26] MEDS ORDERED: ENALAPRIL MALEATE 10 MG TABLET (FP) PO SCH (10:00)
[2017-10-26] MEDS ORDERED: FLUTICASONE PROP 0.05% 16 GM NASAL SPRAY NS SCH (10:00)
[2017-10-26] MEDS ORDERED: PREGABALIN 100 MG CAPSULE PO SCH (14:00)
--- NOTE | 2017-10-26 14:08 | PN ---
Teaching Attending Note Name of Resident: Victor Hugo Evangelista ATTENDING PHYSICIAN STATEMENT I saw and evaluated the patient. I reviewed the resident's note and discussed the case with the resident. I agree with the resident's findings and plan as documented. SUBJECTIVE:c/o severe neck pain radiating down his arm. demanding percocet 20mg as that is what he takes at home. explained to him that IStop has been verified and as written was prescribed a total of 6tabs per day, claims he does not run out of his medications early and it last the month and that he takes 20mg Q4H. also wants miralax but wants triple the amount of the recommended max in a day. states it is the only way it works for him. tried to explain that it is not safe for him to take more than the daily recommended amount and that I can not prescribe medications this way. offered alternative medications to help him move his bowels. which he refused OBJECTIVE: Last Vital Signs Temp Pulse Resp BP Pulse Ox 100.4 F H 91 H 20 120/59 100 10/26/17 08:53 10/26/17 08:53 10/26/17 08:53 10/26/17 08:53 10/25/17 21:00 Refused physical exam ASSESSMENT AND PLAN: 62yo M with PMH HTN. DM., dyslipidemia and hypothyroid and cervical stenosis 1. Cervical stenosis- s/p C5-C6 anterior cervical discectomy and fusion 10/24. tolerated surgery well. states his pain is not controlled. pain management recommendations started. explained to patient that I will offer medications as instructed by specialist and that they will be the one to make other adjustments. further recommendations per ortho. PT assessment. only ambulated 5 feet yesterday 2. constipation- unclear when last BM was. will give miralax and colace prn and allow it to be available to the patient if he becomes agreeable. 3. HTN- controlled. cont home meds 4. hypohtyroid- on lT4 5. DM- hold oral agents. on BGM, ISS 6. DVT ppx- hep sq 7. explained to pt based on PT eval may require TANYA. Attempted to explain to the patient abuse potential with narcotics and that medications should only be taken as prescribed and not how he wants to take them. pt becomes very defensive and does not allow me to finish. will f/u PT eval
[2017-10-26 15:33] VITALS: BP 105/58; PULSE 81; TEMP 99.2
--- NOTE | 2017-10-26 18:44 | DS ---
Physical Exam: SUBJECTIVE: Patient seen and examined OBJECTIVE: Vital Signs Period Temp Pulse Resp BP Sys/Ochoa Pulse Ox Last 24 Hr 99.2 F-100.4 F 77-91 18-20 105-120/58-61 100-100 PHYSICAL EXAM GENERAL: The patient is awake, alert, and fully oriented, in no acute distress. HEAD: Normal with no signs of trauma. EYES: PERRL, extraocular movements intact, sclera anicteric, conjunctiva clear. ENT: Ears normal, nares patent, oropharynx clear without exudates, moist mucous membranes. NECK: Trachea midline, full range of motion, supple. LUNGS: Breath sounds equal, clear to auscultation bilaterally, no wheezes, no crackles, no accessory muscle use. HEART: Regular rate and rhythm, S1, S2 without murmur, rub or gallop. ABDOMEN: Soft, nontender, nondistended, normoactive bowel sounds, no guarding, no rebound, no hepatosplenomegaly, no masses. EXTREMITIES: 2+ pulses, warm, well-perfused, no edema. NEUROLOGICAL: Cranial nerves II through XII grossly intact. Normal speech, gait not observed. PSYCH: Normal mood, normal affect. SKIN: Warm, dry, normal turgor, no rashes or lesions noted. LABS Laboratory Results - last 24 hr 10/26/17 10/26/17 08:15 08:15 WBC 7.7 RBC 4.20 Hgb 12.1 Hct 35.7 MCV 85.1 MCH 28.8 MCHC 33.8 RDW 15.5 Plt Count 136 MPV 7.8 Sodium 140 Potassium 4.0 Chloride 101 Carbon Dioxide 33 H Anion Gap 6 L BUN 14 Creatinine 0.6 L Creat Clearance w eGFR > 60 Random Glucose 130 H Calcium 8.8 Phosphorus 2.3 L D Magnesium 1.7 L Total Bilirubin 0.5 AST 31 D ALT 29 Alkaline Phosphatase 97 D Total Protein 6.8 Albumin 2.8 L HOSPITAL COURSE: Date of Admission:10/24/17 Date of Discharge: 10/26/17 Discharge Summary Reason For Visit: CERVICAL DISC DISORDER Current Active Problems Cervical spinal stenosis (Acute) Diabetes (Chronic) Dyslipidemia (Chronic) HTN (hypertension) (Chronic) Neuropathic pain (Chronic) Condition: Improved - Instructions Diet, Activity, Other Instructions: You were admitted for an (ACDF) spinal fusion procedure. You are being discharged Avoid heavy lifting objects(anything heavier than 5 pounds). No bending or twisting as this may aggravate your back. Ambulate with rolling walker as tolerated. Take pain medications as needed for severe pain. You are being sent on Oxycodone 15 mg every 4 hours as needed which is a very strong medication. Use this medication only as instructed for severe pain. Do not drive or operate heavy machinery while using this medication. Ensure you are having a daily bowel movement while taking. For less severe pain you can take tylenol 650mg every 6 hours as needed. Follow up with your primary care doctor in 1 week. IF you do not have one then information on one has been provided. Follow-up with Dr. Castelan at [facility] office. Please call [phone] for an appointment. Please return to the ER if you experience constipation for more than 3 days, shortness of breath, chest pain, severe/persistent or worsening symptoms, bladder or bowel dysfunction or increased pain that is not resolved with your pain medications. Referrals: Zana Macdonald MD [Staff Physician] - Victor Hugo Castelan MD [Staff Physician] - 1 Week Disposition: ALF FACILITY - Home Medications Comprehensive Discharge Medication List: Ambulatory Orders Atorvastatin Ca [Lipitor] 40 mg PO HS 10/21/17 Diazepam [Valium] 10 mg PO BID 10/21/17 Enalapril Maleate [Vasotec -] 10 mg PO DAILY 10/21/17 Fluticasone Propionate [Flonase Allergy Relief] 9.9 ml NS DAILY 10/21/17 Glyburide 5 mg PO DAILY 10/21/17 Iron Ps Complex/B12/Folic Acid [Poly-Iron 150 Forte Capsule] 1 each PO ASDIR Levothyroxine [Synthroid -] 25 mcg PO DAILY 10/21/17 Magnesium Oxide [Magnesium] 400 mg PO DAILY 10/21/17 Metoprolol Succinate [Toprol Xl] 50 mg PO BID 10/21/17 Naloxegol Oxalate [Movantik] 25 mg PO BID 10/21/17 Polyethylene Glycol 3350 [Miralax 119 gm Btl -] 17 gm PO BID 10/21/17 Tamsulosin HCl [Flomax] 0.4 mg PO BID 10/21/17 Zolpidem Tartrate [Ambien Cr] 12.5 mg PO HS 10/21/17 Aspirin [Adult Aspirin] 81 mg PO DAILY 10/24/17 Metformin HCl 850 mg PO TID 10/24/17 Gabapentin [Neurontin] 300 mg PO TID 10/26/17 Pregabalin [Lyrica -] 200 mg PO TID 10/26/17 oxyCODONE HCL [Roxicodone -] 15 mg PO Q4H PRN tablet MDD 90 10/26/17 oxyCODONE SR [Oxycontin] 10 mg PO BID tab.er.12h MDD 20 10/26/17
== END 2017-10-26 20:01 | disposition home or self-care (01) | DRG 472 ==
LOC: JASUSAT 06:58 → SUATTDRO 06:58 → EDSTATUS 08:00 → JICU 17:30 → JASUSAT 17:43 → JICU 17:43 → J6S 10-25 20:20
PROVIDERS: ADMIT Internal Medicine; ATTEND Internal Medicine
PROC: 0RG10A0 Fusion of Cervical Vertebral Joint with Interbody Fusion Device, Anterior Approach, Anterior Column, Open Approach (ICD-10-PCS; 2017-10-24)
PROC: 0RB30ZZ Excision of Cervical Vertebral Disc, Open Approach (ICD-10-PCS; principal; 2017-10-24 08:00)
DX: M50.022 Cervical disc disorder at C5-C6 level with myelopathy (principal); I51.81 Takotsubo syndrome; I10 Essential (primary) hypertension; I35.0 Nonrheumatic aortic (valve) stenosis; E78.00 Pure hypercholesterolemia, unspecified; E03.9 Hypothyroidism, unspecified; E11.42 Type 2 diabetes mellitus with diabetic polyneuropathy; M48.02 Spinal stenosis, cervical region; N40.0 Benign prostatic hyperplasia without lower urinary tract symptoms; M54.2 Cervicalgia; K59.00 Constipation, unspecified
CPT/HCPCS: 36415; 72100-TC-FY; 76000-TC-FY; 80048; 80053; 82962; 83735; 84100; 85027; 86850; 86900; 86901; 88304-TC; 94760; 97116-GP; 97161-GP; J1100